=== PATIENT | female | born 2000 | race Caucasian/White ===

== ENCOUNTER 2020-03-15 12:54 | Emergency (ER) | payer OTHER ==
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
[2020-03-15 15:12] VITALS: BP 111/58; TEMP 97.4; O2SAT 100
== END 2020-03-15 15:07 | disposition home or self-care (01) ==
LOC: ER 12:54
DX: S70.312A Abrasion, left thigh, initial encounter (principal); V49.9XXA Car occupant (driver) (passenger) injured in unspecified traffic accident, initial encounter
CPT/HCPCS: 99281